=== PATIENT | male | born 1935 | race Caucasian/White ===

== ENCOUNTER 2018-02-07 05:27 | Observation (INO) | payer OTHER ==
[~2018-02-07] VITALS: Ht 180.3 cm; Wt 85.7 kg
--- NOTE | ~2018-02-07 | PATH ---
[facility] [address] [place] [address] PATHOLOGY RPT PROCEDURE Name: NATALI MCCOY Room #: 418-P [facility] Floyd Gauthier#: [id number] Admission: 02/07/18 Date of : 31 Discharge: 02/08/18 Report #: [id number] Path Case #: [id number] [facility] Accession Number: [id number] . 01 Material submitted: . PROSTATE . 01 Clinical history: . BPH . 02 Diagnosis: Prostate, cystoscopy with TURP: - Glandular and stromal hyperplasia. - Mild chronic inflammation. - Negative for malignancy. (IUV:db; 02/08/2018) LBQ/02/08/2018 . 02 Electronically signed: . Luna Bauer MD, Pathologist NPI- [id number] . 01 Gross description: . The specimen is received in formalin, labeled "Parde, Natali Johnnie and prostate", are multiple irregular fragment of lebron-pink rubbery soft tissues weighing 5 g and measuring 4.5 x 3.6 x 1.0 cm in aggregate. The specimen is entirely submitted in A1-A6. . (SWS; 02/07/2018) SHS/SHS . 02 Pathologist provided ICD-10: N41.1, N40.0 . 02 CPT . 764514 Performed at: [address], [place], [place] [id number] MD Forrest Tripathi MD Phone: [phone] Performed at: [address] [id number] MD Luna Bauer MD Phone: [phone]
--- NOTE | ~2018-02-07 | O ---
[facility] [place] [address] OPERATIVE REPORT Name: NATALI MCCOY MALOU Room #: 150-6 [facility] M..#: [id number] Admission: 02/07/18 Attend Phys: Alvin Mcdonough MD Discharge: Date of : 31 Report #: [id number] THIS REPORT FOR: //name// CC: Alvin Dawson MD PREOPERATIVE DIAGNOSES: Benign prostatic hypertrophy with obstruction. POSTOPERATIVE DIAGNOSES: Benign prostatic hypertrophy with obstruction. PROCEDURE: Cystoscopy, plasma button transurethral resection of the prostate. SURGEON: Alvin Mcdonough M.D. ANESTHESIA: General. INDICATIONS: The patient is a very pleasant 82-year-old gentleman with obstructive uropathy with secondary hyperreflexive bladder. He has a visually and urodynamically confirmed bladder outlet obstruction and counseled with respect to treatment options and has opted for plasma button TURP. Risks, benefits, complications including incontinence, bleeding and sepsis have been discussed. He understands risk of failure of the operation as well as the fact that I cannot predict all potential complications. Disability time was discussed. DESCRIPTION OF PROCEDURE: After obtaining informed consent, he was brought to the operating room and general anesthetic was administered. He was prepped and draped in the lithotomy position by the operating personnel under anesthesia supervision. A timeout was performed. The 21-Chadian ACMI cystoscope was introduced under direct vision. Anterior urethra was normal. Prostatic urethra demonstrated obstructive hyperplasia, primarily bilateral lobe hyperplasia. Bladder itself was moderately trabeculated with no intrinsic mucosal lesions. Trigone and ureters were normal in configuration and location. I dilated the urethra to 28 Chadian with Gordon sounds. I then inserted the visual obturator and then removed the obturator and placed the resectoscope. I used the loop to resect the lateral lobes bilaterally and then to complete the resection, I used the button. At the conclusion of the procedure, the trigone and ureteral orifices were totally intact, as was the verumontanum. I removed all the chips. Bleeding was well controlled. There was no significant bleeding. was performed. Prior prosthetic capsule was identified. There were no perforations. The resectoscope was removed. A 24-Chadian 3-way Stevens catheter with 35 mL of water was placed in the balloon to continuous irrigation. He [facility] [address] [place] [address] OPERATIVE REPORT Name: MORAIMALILYNATALI MALOU Room #: 150-6 [facility] M.R.#: [id number] Admission: 02/07/18 Attend Phys: Alvin Mcdonough MD Discharge: Date of : 31 Report #: [id number] reached the recovery room in stable condition. The urine was clear. The findings were shared with his . By: 1121 [id number] Alvin Mcdonough MD /nt
[~2018-02-07 05:27] MED LIST: ASPIRIN325 PO; MOBIC7.5 MG PO; MULTIVITAMINS PO; TRAMADOL 50 MG50 MG PO; TYLENOL EXTRA500 MG PO
[2018-02-07 08:22] VITALS: BP 113/78
[2018-02-07 15:15] VITALS: BP 145/80
[2018-02-07 20:02] VITALS: BP 132/83
[2018-02-08 03:35] VITALS: BP 121/65
[2018-02-08 08:37] VITALS: BP 135/75
[2018-02-08 12:01] VITALS: BP 135/75
== END 2018-02-08 13:06 | disposition home or self-care (01) ==
LOC: OR 05:27 → TBA 05:28 → OR 09:49 → 4E 14:34 → OR 15:04 → 4E 15:05 → ENTRNSPT 02-08 12:50 → EDTRNSPTSTS 02-08 13:00 → 4E 02-08 13:06
DX: N40.1 Benign prostatic hyperplasia with lower urinary tract symptoms (principal); R35.0 Frequency of micturition; E29.9 Testicular dysfunction, unspecified; N52.9 Male erectile dysfunction, unspecified; M19.90 Unspecified osteoarthritis, unspecified site; E78.00 Pure hypercholesterolemia, unspecified; Z72.89 Other problems related to lifestyle; Z85.46 Personal history of malignant neoplasm of prostate
CPT/HCPCS: 50010; 50101; 56815; 57006; 62110; 62900; 64037; 70005